=== PATIENT | female | born 1995 | race Caucasian/White ===

== ENCOUNTER 2024-12-01 10:31 | Emergency (ER) | payer OTHER, SELFPAY ==
--- OUTSIDE RECORDS SUMMARY | 2024-10-30 15:27 | XMS_ITS | Encounter Summary ---
Author Organization [facility] Address [address] [place] [address] Care Team Providers Care Engineering Patternmaker Name Role Phone Elsewhere, Pcp Primary Care Provider Unavailabl e Reason for Visit * Reason Comments Nausea The pt has had nause a and vomiting ( twice) since awakening in the morning on 10-30. The pt also indicates intermittent periods of being hot and cold. The pt did indicate drinking a couple of drinks and eating at a bar last evening. Encounter Details Date Type Department Care Team ([facility] st Contact Info) Description 10/30/2024 3:27 PM CDT - 10/30/2024 4:21 PM CDT Emergency [facility] [address] [place] [address] Gonzales Uribe M.D. 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 Gender Identity Not on file Sexual Orientation Not on file documented as of this encounter Last Filed Vital Signs Vital Sign Reading Time Taken Comments Blood Pressure 124/83 10/30/2024 4:00 PM CDT Pulse 80 10/30/2024 4:00 PM CDT Temperature 36.1 C (97 F) 10/30/2024 3:54 PM CDT Respiratory Rate - - Oxygen Saturation 98% 10/30/2024 4:00 PM CDT Inhaled Oxygen Concentration - - Weight 56.4 kg (124 lb 5.4 oz) 10/30/2024 3:56 P M CDT Height - - Body Mass Index 21.34 10/15/2019 1:47 AM CDT documented in this encounter Discharge Instructions * Attachments The following attachments cannot be sent through Care Everywhere. * Nausea and Vomiting Adult (Hungarian) documented in this encounter Medications at Time of Discharge guaiFENesin (MUCINEX) 600 mg 12 hr tablet Take 600 mg by mouth 2 (two) times a day. mupirocin (Bactroban) 2 % ointment Apply 1 Application topically 3 (three) times a day. Apply to affected area. 22 g 09/30/2024 nystatin (MYCOSTATIN) 100,000 unit/gram cream Apply 1 application topically daily. 05/31/2021 omeprazole (PriLOSEC) [address] capsule Take 1 capsule (20 mg total) by mouth 2 (two) times a day before morning and evening meals for 5 days. 10 capsule 10/30/2024 ondansetron ODT (Zofran-ODT) 4 mg disintegrating tablet Dissolve 1 tablet (4 mg total) in the mouth every 8 (eight) hours as needed for nausea or vomiting. 8 tablet 10/30/2024 pantoprazole (PROTONIX) 40 mg EC tablet Take 40 mg by mouth every morning before breakfast. phenol (CHLORASEPTIC) 1.4 % spray Apply 1 spray to the mouth or throat as needed. valACYclovir (Valtrex) 500 mg tablet TAKE 4 TABLETS BY MOUTH AT ONSET OF ATTACK AND THEN 4 TABLETS 12 HOURS LATER documented as of this encounter ED Notes * Gonzales Uribe M.D. - 10/30/2024 4:21 PM CDT SUBJECTIVE CHIEF COMPLAINT/REASON FOR VISIT Nausea (The pt has had nausea and vomiting ( twice) since awakening in the morning on 10-30. The pt also indicates intermittent periods of being hot and cold. The pt did indicate drinking a couple of drinks and eating at a bar last evening. ) HISTORY OF PRESENT ILLNESS Patient is a 29-year-old female presenting to the emergency department with concern of vomiting that started this morning. Patient reports having 2 alcoholic drinks and food yesterday evening of unclear significance, this morning had 2 episodes of emesis, upset stomach. Given her symptoms presents for assessment evaluation. Prior history of an EGD approximately 1 year ago related to nausea and vomiting and gastritis. She reports no acute findings were noted on that evaluation. Fevers or chills,now here for assessment and evaluation. History provided by: Patient historic interpreter needed/used: no REVIEW OF SYSTEMS Constitutional: Negative for fever. HENT: Negative for sore throat. Eyes: Negative for visual disturbance. Respiratory: Negative for cough. Cardiovascular: Negative for leg swelling. Gastrointestinal: Positive for abdominal pain, nausea and vomiting. Genitourinary: Negative for dysuria. Skin: Negative for rash. Neurological: Negative for headaches. Hematological: Does not bruise/bleed easily. ALLERGIES/MEDICATIONS: Reviewed in medical record. MEDICAL HISTORY Medical History[1] Patient Active Problem List Diagnosis Date Noted Bleeding Vaginal 10/15/2019 Abuse Substance Continuous ([facility]) 10/15/2019 Bipolar Disorder ([facility]) 12/11/2008 SURGICAL HISTORY Surgical History[2] FAMILY HISTORY Reviewed in chart SOCIAL HISTORY Social History[3] Social History Substance and Sexual Activity Alcohol Use Yes Comment: Occasional Social History Substance and Sexual Activity Drug Use Yes Types: Methamphetamines, Marijuana Comment: [employer] marijuana card; Hx methamhetamines OBJECTIVE INITIAL VITAL SIGNS Initial Vitals Temperature 10/30/24 1554 36.1 ??C Pulse Rate 10/30/24 1600 80 Heart Rate -- Resp -- Blood Pressure 10/30/24 1600 124/83 SpO2 10/30/24 1600 98 % Pain Score 10/30/24 1553 6 PHYSICAL EXAMINATION Constitutional: Nursing note and vitals reviewed. No distress. HENT: Mouth/Throat: Mucous membranes are moist. Eyes: Pupils are equal, round, and reactive to light. Cardiovascular: Edema: no edema noted Pulmonary/Chest: Effort normal. Abdominal: Soft. exhibits no distension. There is no abdominal tenderness. Musculoskeletal: General: Normal range of motion. Neurological: Alert. Skin: No cyanosis. ED COURSE Final Diagnoses: as of 10/30/24 1659 Nausea And Vomiting Pain Epigastric INTERVENTIONS Medications - No data to display LABS Labs Reviewed - No data to display ECG RADIOLOGY No orders to display ASSESSMENT / PLAN ASSESSMENT/PLAN IMPRESSION AND PLAN Gali Granger is a 29 y.o. female presents emergency department after 2 episodes of nauseaand vomiting today. On arrival vital signs are normal, she is nontoxic and afebrile. Her abdominal examination is soft,no signs of distention or concerns for acute intra-abdominal emergency. We discussed possibility of gastritis in the setting of alcohol use, additionally consideration forreflux disease, possible food poisoning. At this juncture there is no indication for labs or imaging studies given the acute nature and otherwise well appearance of the patient. We have advise supportive care with prior omeprazole for antacid suppression as well as Zofran for nausea control and symptomatic for with plan for outpatient follow up if continuation or worsening of her symptoms. She is understanding of recommendation will be discharged from the emergency department. DIAGNOSIS Final diagnoses: [R11.2] Nausea And Vomiting [R10.13] Pain Epigastric ED DISCHARGE MEDS ED Prescriptions Medication Sig Dispense Start Date End Date Auth. Provider ondansetron ODT (Zofran-ODT) 4 mg disintegrating tablet Dissolve 1 tablet (4 mg total) in the mouthevery 8 (eight) hours as needed for nausea or vomiting. 8 tablet 10/30/2024 -- Gonzales Uribe M.D. omeprazole (PriLOSEC) [address] capsule Take 1 capsule (20 mg total) by mouth 2 (two) times a day before morning and evening meals for 5 days. 10 capsule 10/30/2024 11/04/2024 Gonzales Uribe M.D. DISPOSITION Home or Self Halfway or Self Care [1] Past Medical History: Diagnosis Date Stone Kidney [2] Past Surgical History: Procedure Laterality Date DILATATION AND SUCTION CURETTAGE N/A 10/15/2019 Procedure: DILATATION AND SUCTION CURETTAGE; Surgeon: Doug Enriquez M.D.; Location: [facility] OR [3] Social History Socioeconomic History Marital status: Single Tobacco Use Smoking status: Never Smokeless tobacco: Never Vaping Use Vaping status: never used Substance and Sexual Activity Alcohol use: Yes Comment: Occasional Drug use: Yes Types: Methamphetamines, Marijuana Comment: Curent medical marijuana card; Hx methamhetamines Social History Narrative Smoking THC/CBD pen. Social Drivers of Health Food Insecurity: No Food Insecurity (07/19/2022) Received from [facility] Food Insecurity Worried About Running Out of Food in the Last Year: 1 Transportation Needs: No Transportation Needs (07/19/2022) Received from [facility] Transportation Needs Lack of Transportation (Medical): 1 Housing Stability: Low Risk (07/19/2022) Received from [facility] Housing Stability Unable to Pay for Housing in the Last Year: 1 Gonzales Uribe M.D. 10/30/24 6211 documented in this encounter Plan of Treatment Not on file documented as of this encounter Visit Diagnoses Diagnosis Nausea And Vomiting- Primary Pain Epigastric documented in this encounter Additional Health Concerns Assessment Noted Time PHQ-9 Depression Total Score: 6 11/22/19 09 8:11 AM CDT documented as of this encounter Care Teams Engineering Patternmaker Relationship Specialty Start Date End Date Elsewhere, Pcp PCP - General Family Medicine 11/01/20 documented as of this encounter
[2024-12-01 10:33] VITALS: BP 111/70; PULSE 75; RESP 16; TEMP 37; O2SAT 98; BMI 21.2
--- OUTSIDE RECORDS SUMMARY | 2024-12-01 10:34 | XMS_ITS | Clinical Summary ---
Author Organization [facility] Address [address] [place] [address] Care Team Providers Care Factory Process Workers Name Role Phone Elsewhere, Pcp Primary Care Provider Unavailabl e Source Comments Patient records contain information from all sites at [facility]. For routine questions regarding patient records, call [phone] during business hours, M-F 8:00 AM - 5:00 PM Central Time. Record requests for emergency care only can be directed to [phone] at any time.[facility] Allergies Active Allergy Reactions Criticality Noted Date Comments Codeine GI intolerance 03/03/2009 Furosemide Rash 05/27/2016 Latex Rash 02/22/2015 Sulfa (Sulfonamide Antibiotics) Rash,GI intolerance 04/09/2012 Tramadol GI intolerance,Rash 05/08/2014 Medications phenol (CHLORASEPTIC) 1.4 % spray Apply 1 spray to the mouth or throat as needed. Active guaiFENesin (MUCINEX) 600 mg 12 hr tablet Take 600 mg by mouth 2 (two) times a day. Active nystatin (MYCOSTATIN) 100,000 unit/gram cream Apply 1 application topically daily. 05/31/20 21 Active triamcinolone (KENALOG) 0.1 % cream Apply 1 application topically 2 (two) times a day for 5 days. Apply sparingly twice daily to affected areas for 5-7 days. 15 g 07/04/19 22 Active pantoprazole (PROTONIX) 40 mg EC tablet Take 40 mg by mouth every morning before breakfast. Active ibuprofen 400 mg tablet Take 1 tablet (400 mg total) by mouth 4 (four) times a day for 7 days. 05/23/20 24 Active acetaminophen (TylenoL) 500 mg tablet Take 2 tablets (1,000 mg total) by mouth every 6 (six) hours for 7 days. 05/23/20 24 Active mupirocin (Bactroban) 2 % ointment Apply 1 Application topically 3 (three) times a day. Apply to affected area. 22 g 10/01/19 25 Active valACYclovir (Valtrex) 500 mg tablet TAKE 4 TABLETS BY MOUTH AT ONSET OF ATTACK AND THEN 4 TABLETS 12 HOURS LATER Active ondansetron ODT (Zofran-ODT) 4 mg disintegrating tablet Dissolve 1 tablet (4 mg total) in the mouth every 8 (eight) hours as needed for nausea or vomiting. 8 tablet 10/31/19 25 Active omeprazole (PriLOSEC) [address] capsule Take 1 capsule (20 mg total) by mouth 2 (two) times a day before morning and evening meals for 5 days. 10 capsule 10/31/19 25 Active Active Problems Problem Noted Date Diagnosed Date Bleeding Vaginal 10/15/2019 Abuse Substance Continuous 10/15/2019 Bipolar Disorder 12/11/2008 Encounters Date Type Department Care Team Description 10/30/2024 3:27 PM CDT - 10/30/2024 4:21 PM CDT Emergency [facility] [address] [place] [phone] Gonzales Uribe M.D. Nausea And Vomiting (Primary Dx); Pain Epigastric Discharge Disposition: Home or Self Care 09/30/2024 7:37 AM CDT - 09/30/2024 8:16 AM CDT Emergency [facility] [address] [place] [phone] Judd Loo P.A.-C. 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 Gender Identity Not on file Sexual Orientation Not on file Last Filed Vital Signs Vital Sign Reading Time Taken Comments Blood Pressure 124/83 10/30/2024 4:00 PM CDT Pulse 80 10/30/2024 4:00 PM CDT Temperature 36.1 C (97 F) 10/30/2024 3:54 PM CDT Respiratory Rate 18 08/14/2024 1:13 PM KENO WRITER / RUNNER Oxygen Saturation 98% 10/30/2024 4:00 PM CDT Inhaled Oxygen Concentration - - Weight 56.4 kg (124 lb 5.4 oz) 10/30/2024 3:56 P M CDT Height 162.6 cm (5' 4) 10/15/2019 1:47 AM CDT Body Mass Index 21.34 10/15/2019 1:47 AM CDT Plan of Treatment Health Maintenance Due Date Last Done Comments HIV Screening 1995 Hepatitis C Screening 1995 DTaP,Tdap,and Td Vaccines (7 - Td or Tdap) 01/31/2018 02/01/2008, 02/05/2001, 01/22/1997, Additional history exists COVID-19 Vaccine ( season) 2024 Influenza Vaccine (#1) 2024 , 02/25/2016, 03/05/2014, Additional history exists Cervical/Vaginal Cancer Screening 05/31/2024 05/31/2021 Depression Screening (Annual PHQ-2) 06/12/2024 Hepatitis B Vaccines Completed 01/09/1996, 1995, 1995 IPV Vaccines Completed 02/05/2001, 01/10, 01/09/1996, Additional history exists HPV Vaccines Completed 07/14/2011, 07/2007, 02/01/2008 Pneumococcal vaccine (0-49 years) Aged Out No longer eligible based on patient's age to complete this topic Insurance [facility] Advance Directives For more information, please contact: [phone] * Full Code (Latest Code Status on File) Date Activated Date Inactivated Comments 10/15/2019 7:17 AM 10/15/2019 10:43 AM Question Answer Comments Full Code: Discussed Care Teams Factory Process Workers Relationship Specialty Start Date End Date Elsewhere, Pcp PCP - General Family Medicine 11/01/20
--- OUTSIDE RECORDS SUMMARY | 2024-12-01 10:35 | XMS_ITS | Patient Health Record ---
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) Active confirmed Problem Ureteral stone (77807577) Ureteral stone (592.1) Active confirmed Problem Abdominal pain (66512776) Acute flank pain (789.00) Active confirmed Problem Kidney stone (80164946) Renal stones (592.0) Active confirmed Plan Of Treatment No Information Insurance Providers Payer Name Payer Address Payer Phone Subscriber Number Group Number Insured Name Patient Relationship to Insured Coverage Start Date Coverage End Date [employer] [address] [address] [place] [address] [id number] Arnulfo Arrieta Child - Insured has Financial Responsibility 2 [facility] [address] [address] [place] [address] [id number] Gali Peck Self - patient is the insured
--- NOTE | 2024-12-01 11:07 | CRLHL7_ITS ---
For Patients: As a result of the Cures Act, medical imaging exams and procedure reports are released immediately into your electronic medical record. You may view this report before your referring provider. If you have questions, please contact your health care provider. INDICATION: Vaginal bleeding TECHNIQUE: Ultrasound OB pelvis transvaginal. Real-time pierre-scale imaging of the pelvis was performed. COMPARISON: None FINDINGS: Sonographic imaging demonstrates a single living intrauterine gestation. The embryo demonstrates a regular cardiac rate measuring 173 beats per minute. The embryo`s crown rump length measurement of 2.1 cm corresponds to a gestational age of 8 weeks 5 days with a sonographic due date of July 08, 2025. There is a normal appearing yolk sac. There are no gross abnormalities noted within the embryo at this early state of development. The placenta has not yet developed. There is no sign of perigestational hemorrhage. The ovaries are of normal size. There is a corpus luteum cyst seen within the left ovary measuring 3 centimeters. There are no suspicious fluid collections noted in the cul-de-sac. IMPRESSION: Single viable intrauterine measuring 8 weeks 5 days. No abnormalities seen. Dictated by Tomy Oliveira MD @ 12/01/2024 12:29:40 PM (Electronically Signed)
[2024-12-01 11:30] LABS: Basophils Absolute Auto 0.02 K/uL (0.00-0.30); Basophils Percent Auto 0.3 % (0.0-3.0); Eosinophils Absolute Auto 0.08 K/uL (0.00-0.50); Eosinophils Percent Auto 1.2 % (0.0-7.0); Hematocrit 37.7 % (33.0-51.0); Hemoglobin* 12.6 gm/dL (12.0-16.0); Immature Granulocytes Abs Auto 0.01 K/uL (0.00-0.30); Immature Granulocytes Pct Auto 0.2 %; Lymphocytes Absolute Auto 1.32 K/uL (0.90-2.90); Lymphocytes Percent Auto 20.5 % (20-44); Mean Corpuscular HGB Conc 33 gm/dL (32-36); Mean Corpuscular Hemoglobin 31 pg (26-34); Mean Corpuscular Volume 93 fL (80-100); Monocytes Percent Auto 6.4 % (0.0-11.0); Neutrophils Absolute Auto 4.61 K/uL (1.7-7.0); Neutrophils Percent Auto 71.4 % (42.0-72.0); Platelet Count* 200 K/uL (140-440); RDW Coefficient of Variation % 11.7 % (11.5-15.5); Red Blood Count 4.05 m/uL (4.00-5.20); White Blood Count* 6.45 K/uL (4.50-11.00)
[2024-12-01 11:33] LABS: Slide Review Reflex No
--- OUTSIDE RECORDS SUMMARY | 2024-12-01 11:37 | XMS_ITS | Clinical Summary ---
Author Organization [facility] Address [address] [place] [id number] Care Team Providers Care Inventory Control/Shipping Receiving Name Role Phone JacemurielAyde AMINTA Primary Care Provider [phone] Allergies Active Allergy Reactions Criticality Noted Date Comments Codeine GI Upset 03/03/2009 Furosemide Rash 05/27/2016 Latex Rash 02/22/2015 Sulfa (Sulfonamide Antibiotics) *Unknown 04/09/2012 Sulfasalazine *Unknown - Childhood Rxn 11/24/19 14 Tramadol GI Upset 05/08/2014 Medications levonorgestrel-et hinyl estrad, 0.1mg-20mcg, (ALESSE-28) 0.1-20 mg-mcg tabletIndications :Oral contraception initial prescription Take 1 Tablet by mouth once daily. 84 Tablet 3 3 Active Additional Information Patient not taking.Reported on 11/18/2024 pantoprazole (PROTONIX) 40 mg delayed-release tabletIndications :Gastritis, presence of bleeding unspecified, unspecified chronicity, unspecified gastritis type Take 1 Tablet (40 mg) by mouth once daily. 30 Tablet 4 Active lidocaine HCL 4 % topical creamIndications: Herpes labialis Apply to painful areas on face up to 4 times daily as needed 30 g 1 4 Active fluticasone propionate (CUTIVATE) 0.05 % creamIndications: Herpes labialis Apply to inflamed areas on face twice daily as needed 15 g 4 Active Additional Information Patient not taking.Reported on 11/18/2024 valACYclovir (VALTREX) 1 gram tabletIndications :Herpes labialis Take 2 tablets with first symptoms of cold sore and then 2 more in 12 hours. 12 Tablet 4 Active lidocaine 5 % ointmentIndicatio ns:Herpes labialis Apply to painful areas on face up to 4 times daily as needed 30 g 4 Active triamcinolone 0.025 % ointmentIndicatio ns:Herpes labialis Apply topically to affected area(s) two times daily. Apply to inflamed areas on face twice daily as needed. Stop when clear. 15 g 4 Active Active Problems Problem Noted Date Diagnosed Date care, subsequent in first tri mester 11/18/2024 Gastritis without bleeding 11/01/2023 Pap smear for cervical cancer screening 05/31/20 21 Overview (07/07/2021): 05/2021 NIL/HPV negative. Plan: Pap/HPV due 05/2026 Bipolar affective disorder, currently depressed, moderate 03/21/2016 Oppositional defiant disorder of childhood or ad olescence 05/14/2009 Bipolar disorder 12/11/2008 Major depression, single episode 09/25/2008 Allergic rhinitis 03/20/2002 Estimated Date of Delivery Comme nts Yes 07/10/2025 Resolved Problems Problem Noted Date Diagnosed Date Resolved Date Nexplanon in place 05/30/2014 5 Overview (05/30/2014): Inserted 05/30/2014, patient aware that she may have irregular bleeding the entire time the Nexplanon is in place. Anabelle Hernandes MD .................... 05/30/2014 10:13 AM Chlamydia trachomatis infect ion of lower genitourinary sites 10/15/2012 09/18/2014 Overview (03/05/2014): treatment 02/2014 Implanon insertion 07/14/2011 4 Overview (07/14/2011): Left arm Unspecified adjustment reaction 05/14/2008 09/18/2014 Acute pharyngitis 05/07/2004 09/18/2014 FRACTURE, DISTAL RADIUS 11/07/200311/10 ANGER 10/22/2002 09/18/2014 Encounters Date Type Department Care Team Description 11/26/2024 9:51 AM CDT - 11/26/2024 11:59 PM CDT Hospital Encounter [facility] [address] [place] [address] Fay Gurrola, care, subsequent in first trimester (HC) 11/26/2024 Travel 11/18/2024 10:00 AM CDT Phone OB Encounter [facility] [address] [place] [address] Education (DOREEN 07/10/25) 11/18/2024 Travel 11/17/2024 Travel 11/13/2024 Travel from Last 3 Months Immunizations Immunization Administration Dates Next Due DTP-HIB 03/18/1996,01/09/1996 DTaP 02/05/2001, 7,05/29/1996,12/12/18 96,1995 HIB PRP-T (ActHIB,Hiberix) 05/29/1996,1995 ,1995 Hepatitis A (Peds) 07/14/2011,02/01/2008 Hepatitis B (Peds) 05/29/1996, 6,01/09/1996,12/12/18 96,1995 Hib Conjugate, Unspecified 01/22/1997 Human Papilloma Virus Vaccine 07/14/2011, 008,02/01/2008 09/11/2008 Inactivated Polio Vaccine 02/05/2001 Influenza, IIV3 (Age >=3 years) 04/28/2010,05/13 Influenza, IIV4 05/31/2021,02/25/2016,03/05/2014 MMR 02/01/2008,02/05/2001,01/22/1997 Meningococcal Vaccine (Menactra) 05/13/2008 Oral Polio Vaccine 01/22/1997, 6,01/09/1996,12/12/18 96,1995 Tdap 02/01/2008 Tuberculin (PPD) 01/01/2015,12/18/2014 Varicella Vaccine 02/01/2008,02/05/2001 Family History Medical History Relation Name Comments Asthma Mother Diabetes Sister type 2 Good Health Son Cancer-breast No Family History Cancer-colon No Family History Hyperlipidemia No Family History Relation Name Status Comments Father Alive Mother Alive Sister Son Alive Social History Tobacco Use Types Packs/Day Years Used Date Smoking Tobacco: Never Smokeless Tobacco: Never Tobacco Cessation:Counseling Given: Not Answered Alcohol Use Standard Drinks/Week Comments Not Currently 0 (1 standard drink = 0.6 oz pur e alcohol) on tuesdays PHQ-2 Answer Date Recorded PHQ-2 TOTAL SCORE 3 07/19/2022 Social Connections Answer Date Recorded Frequency of Communication with Friends and Fami ly 0 07/19/2022 Financial Resource Strain Answer Date R ecorded Difficulty of Paying Living Expenses 3 07/19/2022 Difficulty of Paying Living Expenses Not on file 07/19/2022 Food Insecurity Answer Date Recorded Worried About Running Out of Food in the Last Ye ar 1 07/19/2022 Transportation Needs Answer Date Record ed Lack of Transportation (Medical) 1 07/19/2022 Housing Stability Answer Date Recorded Unable to Pay for Housing in the Last Year 1 07/19/2022 Estimated Date of Delivery Comme nts Yes 07/10/2025 Sex and Gender Information Value Date Recorded Sex Assigned at Not on file Legal Sex Female 5:27 AM ADJUNCT FACULTY FOR MEDICAL TERMINOLOGY Gender Identity Not on file Sexual Orientation Not on file Occupation Industry Job Start Date Job End Date [employer] Not on file Not on file Not on file Obstetrics History Para Term AB IAB SAB Ectopic Multiple Livin g Live Births 6 2 1 1 3 2 1 2 2 Date Outcome GA Total Labor Labor/2nd/3rd Weight Sex Type Anes PTL Tala A1 A5 Name Clin IAB IAB 010 Term 39w 0d M Vag Livin g Brennan Delivery Location:[facility] 014 SAB 016 36w 0d M Vag Livin g Current Summary Episode Dates Number of Fetuses Estimated Date of Delivery 11/18/2024 - Present (12/01/2024) 1 07/10/2025 (set by Whit Mcfarland RN on 11/18/2024 based on Alternate DOREEN Entry) Dating Summary Based On DOREEN GA Diff Last Menstrual Period on 10/03/2024 (Within Week s) 07/10/2025 Same Alternate DOREEN Entry 07/10/2025 Working Overview and Plan :Cruz Delivery Plans Planned delivery method:Vaginal Vitals Pregravid Weight Height TWG (As of 12/01/2024) Pregrav id BMI 1.638 m (5' 4.5) Date GA Fund Present FHR Mvmt BP Weight Edema Alb Glu Ket Dil/ Eff/Sta 5 7w5d Inpatient data not displayed here. See encounter summary. Notes Progress Notes - Phone OB En counter - 11/18/2024 - GA:6w4d 11/18/2024 - 6w4d - Adrian Mcfarland RN OB Education. This is her 6 . Her significant other Gio is involved. HPI: Currently she is feeling Breast tenderness, exhaustion, nausea at times, but medical marijuana is working. Mood:Crabby at times. counseled, information provided, and discussed Past Medical History: . Date Allergic rhinitis 03/20/2002 Bipolar 1 disorder (HC) Chlamydia 09/2012 treated 2012 Chlamydia trachomatis infection of lower genitourinary sites 10/15/2012 treatment 02/2014 Exercise-induced asthma (HC) Kidney stone Major depression, single episode 09/25/2008 Menstrual disorder chronic bleeding Q day Oppositional defiant disorder of childhood or adolescence 05/14/2009 Pap smear for cervical cancer screening 05/31/202105/2021 NIL/HPV negative. Plan: Pap/HPV due 05/2026 Pyelonephritis OB History Para Term AB Living 6 2 1 1 3 2 SAB IAB Live Births 1 2 2 Patient Active Problem List Diagnosis Code Allergic rhinitis J30.9 Major depression, single episode F32.9 Oppositional defiant disorder of childhood or adolescence F91.3 Bipolar affective disorder, currently depressed, moderate (HC) F31.32 Pap smear for cervical cancer screening Z12.4 Bipolar disorder (HC) F31.9 Gastritis without bleeding K29.70 Current Outpatient Rx Medication Sig Dispense Refill fluticasone propionate (CUTIVATE) 0.05 % cream Apply to inflamed areas on face twice daily as needed (Patient not taking: Reported on 11/18/2024) 15 g 0 levonorgestrel-ethinyl estrad, 0.1mg-20mcg, (ALESSE-28) 0.1-20 mg-mcg tablet Take 1 Tablet by mouth once daily. (Patient not taking: Reported on 11/18/2024) 84 Tablet 3 lidocaine 5 % ointment Apply to painful areas on face up to 4 times daily as needed 30 g 0 lidocaine HCL 4 % topical cream Apply to painful areas on face up to 4 times daily as needed 30 g 1 pantoprazole (PROTONIX) 40 mg delayed-release tablet Take 1 Tablet (40 mg) by mouth once daily. 30 Tablet 0 triamcinolone 0.025 % ointment Apply topically to affected area(s) two times daily. Apply to inflamed areas on face twice daily as needed. Stop when clear. 15 g 0 valACYclovir (VALTREX) 1 gram tablet Take 2 tablets with first symptoms of cold sore and then 2 more in 12 hours. 12 Tablet 0 Medications have been reviewed by me and are current to the best of my knowledge and ability. Discussed about the following topics, patient will receive information at initial OB visit: Nutrition: counseled, information provided, and discussed -Usual weight gain: 25-35 for women starting with normal weight. Current BMI: 20 25 to 29.9: 15-25 lbs 30 or more: 11-20 lbs Physical Activity: counseled, information provided, and discussed Current activity: Not active. Genetic testing: Interested in gender and genetics. Calcium intake is adequate. women need 1,200 mg daily. A serving of food rich in calcium has 250 to 350 mg of calcium. (Examples include 8 oz of milk or fortified juice, 6 to 8 oz of yogurt. Three servings of calcium-rich food and your vitamin typically equal 1,200 mg daily. She does not take supplements. Caffeine: counseled, information provided, and discussed Limit caffeine each day to 200 mg. Coffee at coffee shops generally contain more caffeine, so be mindful of that. Sugar substitute:counseled, information provided, and discussed Fish:counseled, information provided, and discussed Eat only cooked fish- Parasites and bacteria in uncooked fish, such as sushi, can cause illness. Avoid smoked fish due to concerns about listeria. Lunch meats:counseled, information provided, and discussed Listeria-type of bacteria found in soil and water. Listeria can be found in raw meats and vegetables, foods that become contaminated after processing and raw or unpasteurized milk. Avoid foods high in calories from sugar and fat. Iron/protein intake Fluids: Drink 8 to 10 glasses of liquids each day. Increase if the weather is hot. Meds, Herbs, Vitamins: none Given list of over the counter medication that could be used in at the approval of the OB provider. Was safe medication list sent through [employer] : will send the list of safe meds Sleep: adequate Alcohol/Chemical Use: counseled, information provided, and discussed She does not smoke, and has not smoked in the past. Quit smoking: none Screened for Domestic Abuse: counseled, information provided, and discussed Toxoplasmosis Precaution: counseled, information provided, and discussed Exposure to cats: has cats, will not change litter box. Avoidance of sauna/hot tubs emphasized. What to expect during visits Bring a list of questions you have for the provider. -Initial Ultrasound between 8-10 weeks -Anatomy ultrasound at 20 weeks. Frequency of visits: -Monthly until 28 weeks then biweekly until 36 weeks, then weekly until 40 weeks unless problems. -Reviewed Bloodwork to be done at first OB: CBC, Hepatitis B, HIV, RPR, Gonorrhea, Chlamydia, UA, URINE CULTURE, Drug screen, TSH, Blood type. RPR testing also done at 28 weeks and delivery. -RPR at 28 weeks and after delivery. Tdap shot at end of - Need for Rhogam shots based on blood typing done with labwork today. Rhogam shots at 28 weeks and 12 weeks later if still for Rh - mothers. Another Rhogam within 72 hours of delivery if baby Rh positive. Discussed resources available, nurses, OB MD, lacatation procurement consultant and Babystop class. Advised to check on breastpumps with insurance. Informed patient how to contact the triage nurse or the labor and delivery floor if experiencing any symptoms listed below. Warning signs: vaginal bleeding, fluid leaking from your vagina, severe abdominal pain, nausea/vomiting more than 4-5 times a day or if not able to keep anything down, fever more than 100.4, problems with urination and headache that doesn't go away with tylenol. Questions the patient has: No questions. A/P: OB Education. OB labs and US are ordered. She is not in need of a prescription for vitamins and she has her next OB visit scheduled with Dr. Enriquez 12/27/24. 25 minutes spent with patient and greater than 50% was spent on counseling. Whit Mcfarland RN .................... 11/18/2024 10:11 AM Last Filed Vital Signs Vital Sign Reading Time Taken Comments Blood Pressure 108/72 11/01/2023 11:12 AM CDT Pulse 60 11/01/2023 11:12 AM CDT Temperature 36.6 C (97.8 F) 11/01/2023 10:45 AM CDT Respiratory Rate 16 11/01/2023 11:12 AM CDT Oxygen Saturation 98% 11/01/2023 11:12 AM CDT Inhaled Oxygen Concentration - - Weight 54.4 kg (120 lb) 11/18/2024 10:01 AM CDT Height 163.8 cm (5' 4.5) 11/18/2024 10:01 AM CD T Body Mass Index 20.28 11/18/2024 10:01 AM CDT Plan of Treatment Upcoming Encounters Date Type Department Care Team (Late st Contact Info) Description 12/27/2024 10:00 AM CDT OB Encounter [address] [phone] OlgaFay lacy, [address] [address] Health Maintenance Due Date Last Done Comments Hepatitis C screening for age 18-79 2013 04/09/2012 Tetanus booster 01/31/2018 02/01/2008 Depression screening for age 12+ 07/19/2023 07/19/2022, 01/04/2017, 03/21/2016 COVID-19 vaccine series ( - season) 2024 Influenza Vaccine (Season Ended) 2025 05/31/2021, 02/25/2016, 03/05/2014, Additional history exists RSV vaccine for adults or (1 - Risk 1-dose series) 05/15/2025 BMI (ht and wt on same day) for age 18+ 11/18/2025 11/18/2024, 10/13/2023, 07/19/2022, Additional history exists Pap test for age 21-65 05/31/2026 05/31/2021, 2020 Hepatitis B series for 19+ Completed 05/29, 03/18/1996, 01/09/1996, Additional history exists Tdap Completed 02/01/2008 HIV for age 15-65 Completed 03/27/2013, , 06/29/2009 Pneumococcal series for age 6-49 Aged Out No longer eligible based on patient's age to complete this topic Procedures Procedure Name Priority Date/Time Associated Diagnosis Comments US OB 1ST TRI SINGLE TA AND TV Routine 11/26/2024 10:45 AM CDT care, subsequent in first trimester (HC) PRESSURE TESTING TECHNICIAN THIN PREP PAP SCREEN IMAGED Routine 05/31/2021 5:50 PM ADJUNCT FACULTY FOR MEDICAL TERMINOLOGY Screening for malignant neoplasm of cervix ANTI HIV 1/2 Routine 03/27/2013 2:58 PM CDT Screening for STD (sexually transmitted disease) ANTI HCV Routine 04/09/2012 2:26 PM CDT Tattoo Exposure to needle from Last 3 Months or Most Recently Relevant to Health Maintenance Results * US OB 1ST TRI SINGLE TA AND TV (11/26/2024 10:45 AM CDT) Anatomical Region Laterality Modality Ultrasound 11/26/2024 11:1 8 AM CDT Impressions 11/26/2024 11:18 AM CDT 1. Single viable intrauterine with an estimated gestational age of 7 weeks, 6 days and a heart rate of 160 beats per minute. Tiny perigestational hemorrhage. 2. Tiny perigestational hemorrhage. Dictated by Buck Hannah MD @ 11/26/2024 11:18:16 AM (Electronically Signed) Narrative 11/26/2024 11:18 AM CDT For Patients: As a result of the 21st Century Cures Act, medical imaging exams and procedure reports are released immediately into your electronic medical record. You may view this report before your referring provider. If you have questions, please contact your health care provider. INDICATION: care. First-trimester . TECHNIQUE: Ultrasound OB pelvis transabdominal and transvaginal. Real-time pierre-scale imaging of the pelvis was performed. COMPARISON: None. FINDINGS: There is a single intrauterine gestation. The embryo demonstrates a regular cardiac rate measuring 160 beats per minute. The embryo`s crown rump length measurement of 1.5 cm corresponds to a gestational age of 7 weeks, 6 days with a sonographic due date of 07/09/2025. There is a normal appearing yolk sac. There are no gross abnormalities noted within the embryo at this early state of development. The placenta has not yet developed. There is 0.5 x 0.4 x 0.8 cm perigestational hemorrhage. The ovaries are of normal size. Left corpus luteum cyst. There are no suspicious fluid collections noted in the cul-de-sac. Procedure Note Buck Hannah MD - 11/26/2024 For Patients: As a result of the Cures Act, medical imagingexams and procedure reports are released immediately into your electronicmedical record. You may view this report before your referring provider.If you have questions, please contact your health care provider. INDICATION: care. First-trimester . TECHNIQUE: Ultrasound OB pelvis transabdominal and transvaginal. [id number]-[id number] imaging of the pelvis was performed. COMPARISON: None. FINDINGS: There is a single intrauterine gestation. The embryo demonstrates aregular cardiac rate measuring 160 beats per minute. The embryo`s crownrump length measurement of 1.5 cm corresponds to a gestational age of 7weeks, 6 days with a sonographic due date of 07/09/2025. There is a normal appearing yolk sac. There are no gross abnormalitiesnoted within the embryo at this early state of development. The placentahas not yet developed. There is 0.5 x 0.4 x 0.8 cm perigestationalhemorrhage. The ovaries are of normal size. Left corpus luteum cyst. There are nosuspicious fluid collections noted in the cul-de-sac. IMPRESSION: 1. Single viable intrauterine with an estimated gestational ageof 7 weeks, 6 days and a heart rate of 160 beats per minute. Tinyperigestational hemorrhage. 2. Tiny perigestational hemorrhage. Dictated by Buck Hannah MD @ 11/26/2024 11:18:16 AM (Electronically Signed) us Fay Enriquez-Greta DO US Final Result * PRESSURE TESTING TECHNICIAN THIN PREP PAP SCREEN IMAGED [[id number]] (05/31/2021 5:50 PM ADJUNCT FACULTY FOR MEDICAL TERMINOLOGY) Case Report Gynecologic Cytology Report Case: [id number] Authorizing Provider: Ayde Hathaway NP Collected: [id number]/[id number] Ordering Location: [facility] Received: 05/31/2021 175 Clinic First Screen: Merrick Owen Specimen: PRESSURE TESTING TECHNICIAN ThinPrep Vial Screening, Cervical 06/17/2021 1:56 PM ADJUNCT FACULTY FOR MEDICAL TERMINOLOGY [facility] INTERPRETATION/ RESULT NEGATIVE FOR INTRAEPITHELIAL LESION OR MALIGNANCY (NIL) (none) 06/17/2021 1:56 PM [facility]UNCT FACULTY [facility] MEDICAL TERMIN[facility] at 1356 ADJUNCT FACULTY FOR MEDICAL TERMINOLOGY ORGANISM(S) Trichomonas vaginalis 06/17/2021 1:56 PM ADJUNCT FACULTY FOR MEDICAL TERMINOLOGY [facility] SPECIMEN ADEQUACY Satisfactory for evaluation Endocervical component present 06/17/2021 1:56 PM ADJUNCT FACULTY FOR MEDICAL TERMINOLOGY [facility] HPV REQUEST HPV if ASCUS 06/17/2021 1:56 PM ADJUNCT FACULTY FOR MEDICAL TERMINOLOGY [facility] EN[facility] Date of LMP 05/24/2021 06/17/2021 1:56 PM ADJUNCT FACULTY FOR MEDICAL TERMINOLOGY [facility] Last Pap Date uncertain 06/17/2021 1:56 PM ADJUNCT FACULTY FOR MEDICAL TERMINOLOGY [facility] Last Pap Result First Pap/Unknown 1:56 PM ADJUNCT FACULTY FOR MEDICAL TERMINOLOGY [facility] Abnormal Pap or [place] Bx in last 5 years No 06/17/2021 1:56 PM ADJUNCT FACULTY FOR MEDICAL TERMINOLOGY [facility] Menstrual Status Regular Periods 06/17/2021 1:56 PM ADJUNCT FACULTY FOR MEDICAL TERMINOLOGY [facility] [place] Bx Done Today No 06/17/2021 1:56 PM ADJUNCT FACULTY FOR MEDICAL TERMINOLOGY [facility] Additional Information None given 06/17/2021 1:56 PM ADJUNCT FACULTY FOR MEDICAL TERMINOLOGY [facility] Comment: Cytology is screened at [facility] - [address], [place] [address] and [facility] - [address] [place] [address], [place] [address] and [facility] - [address] [place] [address] Interpreted at [facility] - [address] [place] [address], [place] [address] Automated Review Successful 06/17/2021 1:56 PM ADJUNCT FACULTY FOR MEDICAL TERMINOLOGY [facility] Comment:Specimen processed s uccessfully by automated uniformer device, ThinPrep Imaging System, [employer] Note The pap test is a screening technique, not a diagnostic procedure. It is used primarily to screen for squamous cancers and precursor lesions. Published studies have shown that it is subject to both false negative and false positive results. The pap test should not be used as the sole means to diagnose or exclude pre-malignant and malignant lesions. 06/17/2021 1:56 PM ADJUNCT FACULTY FOR MEDICAL TERMINOLOGY [facility] Other (Cervical) Non-Blood / Unknown 05/31/2021 5:50 PM ADJUNCT FACULTY FOR MEDICAL TERMINOLOGY 05/31/2021 5:51 PM ADJUNCT FACULTY FOR MEDICAL TERMINOLOGY us Ayde Hathaway NP PATHOLOGY/CYTOLOGY Final Res ult [facility] [address] [place] [address], [place] * ANTI HIV 1/2 (03/27/2013 2:58 PM CDT) ANTI HIV 1/2 Non-reacti ve [facility] Blood specimen (specimen) BLOOD SPECIMEN / Unknown 03/27/2013 2:58 PM CDT 03/27/2013 2:54 PM CDT us Ayde Hathaway HISTOPATHOLOGIST SEND OUTS Final Result [facility] [place]NAL ZIP [id number] [address] [place] [address] * ANTI HCV (04/09/2012 2:26 PM CDT) ANTI HCV Non-reacti ve [facility] Blood specimen (specimen) BLOOD SPECIMEN / Unknown 04/09/2012 2:26 PM CDT 04/09/2012 2:21 PM CDT Ayde Hathaway NP SEND OUTS Final Result [facility] INTERNAL ZIP [id number] [address] [place] [address] from Last 3 Months or Most Recently Relevant to Health Maintenance Insurance MEDICAID [facility] * Guarantor: Arnulfo Dozier Account Type Relation to Patient Date of Phone Billing Address Motor Vehicle [id number] [place] [address] [place] [address] Advance Directives * Full Code (Latest Code Status on File) Date Activated Date Inactivated Comments 11/01/2023 9:14 AM 11/01/2023 1:32 PM Question Answer Comments Code Status Discussion: Reviewed Preferences * Full Code Date Activated Date Inactivated Comments 01/23/2016 11:05 PM 01/24/2016 1:30 AM Care Teams Inventory Control/Shipping Receiving Relationship Specialty Start Date End Date Ayde Hathaway NP [address] [place] [address] [place] GALE [id number] PCP - General Family Practice 01/03/12
[2024-12-01 11:38] LABS: Appearance Urine Clear (Clear); Bilirubin Urine Negative (Negative); Blood Urine Negative (Negative); Color Urine Yellow (Yellow); Glucose Urine Negative (Negative); Ketones Urine 3+ (Negative); Leukocyte Esterase Urine Negative (Negative); Nitrite Urine Negative (Negative); Protein Urine Negative (Negative)
[2024-12-01 12:05] LABS: RBC Urine 0-2 (0-2); Squamous Epithelial Cell Urine Few (None-Few); WBC Urine 0-2 (0-5)
--- NOTE | 2024-12-01 12:06 | ED_ITS ---
HPI - General Date Seen: 12/01/24 Chief complaint: Vaginal Bleeding Stated complaint: bleeding/cramping, 8 weeks Time Seen by Provider: 12/01/24 10:38 Source: patient and family Mode of arrival: ambulatory Limitations: no limitations History of Present Illness HPI Narrative: Patient is 29-year-old female [id number] presents here with vaginal bleeding at 8 weeks gestation her EDC is July [id number]. She had ultrasound done 3 days ago, in [place], this showed she had a issac bleed. She has had some dark discharge which she takes is dark blood, not a lot, but enough to concern herself. Specially when she wipes. She also has some mild cramping associated with this. She went to the [place] ER but they do not have ultrasound so she drove here to [place] for an assessment, she is unsure about her Rh status, denies nausea vomiting denies fevers chills his eye is dysuria frequency, no back pain associated with this. Complaint: vaginal bleeding and contractions Onset (ago): hour(s) Location: pelvis and abdomen Severity: mild Quality: Cramping Relieving factors: none Exacerbating factors: none Associated symptoms: denies other symptoms Vaginal discharge: none Vaginal bleeding: light Patient : Yes Expected Date of Delivery: 07/06/25 OB History - Current : other care: good care Related Data : 6 Para: 2 Total number of abortions (spontaneous and elective): 3 Home Medications ?Medication ?Instructions ?Recorded ?Confirmed No Known Home Medications 12/01/2411/11 Allergies Allergy/AdvReac Type Severity Reaction Status Date / Time codeine Allergy Mild GI upset Verified 12/01/24 10:43 latex Allergy Mild Rash Verified 12/01/24 10:43 tramadol Allergy Mild GI upset Verified 12/01/24 10:43 Sulfa (Sulfonamide Allergy Unknown Verified 12/01/24 10:43 Antibiotics) Review of Systems Status of ROS: Reports: 10 or more systems reviewed and unremarkable except as noted in History and below [facility] Social History Smoking Status: Never smoker Do you use any of these nicotine containing products: None Second hand tobacco smoke exposure: No How often do you have a drink containing alcohol: monthly or less AUDIT-C Alcohol total score: 1 Non-prescribed substance use: denies use Exam Narrative: Exam Narrative: On examination in room 7 she is in no apparent distress delightful, nontoxic looking with normal vital signs, chest shows good air entry into all, heart sounds are normal, conjunctiva well perfused oropharynx normal, neck is supple. Her abdomen is soft there is no guarding no organomegaly, I do not feel a gravid uterus. Moves all extremities independently and well, I was able to check her old chart here could she did deliver a baby here with there is nose significant information to tell if she is Rh positive her negative. Thus I will order that test. Along with a urine and ultrasound. Const: Vital Signs, click to edit/add: Vital Signs - 24 hr 12/01/24 10:33 Temperature 98.6 F Pulse Rate [Pulse Oximeter] 75 Respiratory Rate 16 Blood Pressure [Ri ght Upper Arm] 111/70 Pulse Oximetry 98 Oxygen Delivery Me thod Room Air Documenting provider has reviewed patient's vital signs: yes Course Reevaluation(s) Time of Reevaluation #1: 13:08 Reevaluation #1: Bleeding defervesced, patient was reassured by the normal ultrasound distal call this a threatened , I told her no intercourse follow-up with her regular physician this week and Tylenol, return if worsening bleeding cramping or other issues. She was very comfortable with this plan. Vital Signs Vital signs: Initial Vital Signs Temperature 98.6 F 12/01/24 10:33 Temperature Source Temporal Artery Scan 12/01/24 10:33 Pulse Rate 75 12/01/24 10:33 Respiratory Rate 16 12/01/24 10:33 Blood Pressure 111/70 12/01/24 10:33 Blood Pressure Mean 83 12/01/24 10:33 Blood Pressure Position Sitting 12/01/24 10:33 Pulse Oximetry 98 12/01/24 10:33 Oxygen Delivery Method Room Air 12/01/24 10:33 Vital Signs Temperature 98.6 F 12/01/24 10:33 Pulse Rate 75 12/01/24 10:33 Respiratory Rate 16 12/01/24 10:33 Blood Pressure 111/70 12/01/24 10:33 Pulse Oximetry 98 12/01/24 10:33 Oxygen Delivery Method Room Air 12/01/24 10:33 Temperature 98.6 F 12/01/24 10:33 Pulse Rate 75 12/01/24 10:33 Respiratory Rate 16 12/01/24 10:33 Blood Pressure 111/70 12/01/24 10:33 Pulse Oximetry 98 12/01/24 10:33 Oxygen Delivery Method Room Air 12/01/24 10:33 Medications Administered Medications: Generic Name Dose Route Start Last Admin Trade Name Freq PRN Reason Stop Dose Admin Sodium Chloride 1,000 mls @ 1,000 mls/hr 12/01/24 12:30 12/01/24 12:24 0.9 % Sodium Chloride 1000 Ml IV 12/01/24 13:29 1,000 mls/hr .Q1H ALDO Administration MDM - OB/Uterine Contractions MDM Narrative Medical decision making narrative: Vaginal bleeding in , ultrasound will be ordered. We will do an Rh, and a urine also. A CBC. Lab Data Attestation: I reviewed the patient's lab results. Labs: Lab Results 12/01/24 12/01/24 Range/Units 11:18 11:22 WBC 6.45 (4.50-11.00) K/uL RBC 4.05 (4.00-5.20) m/uL Hgb 12.6 (12.0-16.0) gm/dL Hct 37.7 (33.0-51.0) % MCV 93 (80-100) fL MCH 31 (26-34) pg MCHC 33 (32-36) gm/dL RDW Coeff of Memo 11.7 (11.5-15.5) % Plt Count 200 (140-440) K/uL Neut % (Auto) 71.4 (42.0-72.0) % Lymph % (Auto) 20.5 (20-44) % [place] % (Auto) 6.4 (0.0-11.0) % Eos % (Auto) 1.2 (0.0-7.0) % Baso % (Auto) 0.3 (0.0-3.0) % Neut # (Auto) 4.61 (1.7-7.0) K/uL Lymph # (Auto) 1.32 (0.90-2.90) K/uL [place] # (Auto) 0.40 (0.00-0.90) K/UL Eos # (Auto) 0.08 (0.00-0.50) K/uL Baso # (Auto) 0.02 (0.00-0.30) K/uL Abs Immat Gran (auto) 0.01 (0.00-0.30) K/uL Imm/Tot Granulo (auto) 0.2 % Urine Color Yellow (Yellow) Urine Appearance Clear (Clear) Urine pH 7.0 (5.0-8.5) Ur Specific [place] 1.020 (1.000-1.030) Urine Protein Negative (Negative) Urine Glucose (UA) Negative (Negative) Urine Ketones 3+ A (Negative) Urine Blood Negative (Negative) Urine Nitrite Negative (Negative) Urine Bilirubin Negative (Negative) Urine Urobilinogen 1.0 (0.2-1.0) Ur Leukocyte Esterase Negative (Negative) Urine RBC 0-2 (0-2) Urine WBC 0-2 (0-5) Ur Squamous Epith Cells Few (None-Few) Urine Bacteria None (None) Blood Type O Positive Imaging Data Pelvic ultrasound: Radiologist's impression: [place] [address] Diagnostic Imaging Report Patient: Gali Granger MR#: [id number] : 1995 Acct:[id number] Loc: ED Service Date: 12/01/[address]: Ordering Physician: Pawel Pardo M.D. Date of Service: 12/01/24 Procedure(s): US OB transvaginal Accession Number(s): [id number] cc: Ayde Hathaway CNP; Pawel Pardo M.D.~ For Patients: As a result of the Century Cures Act, medical imaging exams and procedure reports are released immediately into your electronic medical record. You may view this report before your referring provider. If you have questions, please contact your health care provider. INDICATION: Vaginal bleeding TECHNIQUE: Ultrasound OB pelvis transvaginal. Real-time pierre-scale imaging of the pelvis was performed. COMPARISON: None FINDINGS: Sonographic imaging demonstrates a single living intrauterine gestation. The embryo demonstrates a regular cardiac rate measuring 173 beats per minute. The embryo`s crown rump length measurement of 2.1 cm corresponds to a gestational age of 8 weeks 5 days with a sonographic due date of July 08, 2025. There is a normal appearing yolk sac. There are no gross abnormalities noted within the embryo at this early state of development. The placenta has not yet developed. There is no sign of perigestational hemorrhage. The ovaries are of normal size. There is a corpus luteum cyst seen within the left ovary measuring 3 centimeters. There are no suspicious fluid collections noted in the cul-de-sac. IMPRESSION: Single viable intrauterine measuring 8 weeks 5 days. No abnormalities seen. Dictated by Tomy Oliveira MD @ 12/01/2024 12:29:40 PM (Electronically Signed) Discharge Plan Discharge Clinical Impression: Vaginal bleeding, Miscarriage, threatened, early Patient Disposition: Home w/ Parent or Adult Condition: Stable Instructions: Threatened Miscarriage (ED) Additional Instructions: Home rest reassurance given, Tylenol for the discomfort, follow-up with primary care OB this week, no evidence of any significant bleeding on ultrasound, just normal pole. Activity Level: Light activity Prescriptions: No Action No Known Home Medications Follow Up/Referrals: Ayde Hathaway, DAJUAN [Primary Care Provider, Family Practice] Stand Alone Forms: [employer] Info Instructions
[2024-12-01] MEDS: 0.9 % SODIUM CHLORIDE 1000 ml 1,000 ML IV (12:24)
== END 2024-12-01 13:17 | disposition home or self-care (01) ==
PROVIDERS: Emergency Provider Family Medicine; PCP Nurse Practitioner Family
DX: O20.0 Threatened abortion (principal); Z3A.08 8 weeks gestation of pregnancy
CPT/HCPCS: 36415; 76817; 81001; 85025; 86900; 86901; 99284; J7030